=== PATIENT | female | born 1970 | race African-American/Black ===

== ENCOUNTER 2023-05-16 14:05 | Emergency (ER) | payer OTHER ==
[~2023-05-16] VITALS: Ht 167.6 cm; Wt 68.0 kg
[2023-05-16 14:16] VITALS: O2SAT 98
[2023-05-16 14:42] LABS: BASOPHILS % 0.6 % (0.0-2.0); EOSINOPHILS % 2.4 % (0.0-5.0); HEMATOCRIT. 36.3 % (36.0-48.0); HEMOGLOBIN. 12.3 g/dL (12.0-16.0); LYMPHOCYTES % 20.4 % (20.0-50.0); MEAN CORPUSCULAR HEMOGLOBIN 27.6 pg (28.0-32.0); MEAN CORPUSCULAR HGB CONC 33.8 g/dL (31.0-37.0); MEAN CORPUSCULAR VOLUME 81.6 fL (81.0-99.0); MEAN PLATELET VOLUME 8.4 fl (7.4-10.4); MONOCYTES % 5.9 % (2.0-8.0); NEUTROPHILS % 70.7 % (40.0-76.0); PLATELET 370 x1000/uL (130-400); RED BLOOD CELL COUNT 4.45 mill/uL (4.2-5.4); RED CELL DISTRIBUTION WIDTH 20.6 % (11.6-14.6)
[2023-05-16 14:53] LABS: HCG SCREEN NEGATIVE
[2023-05-16 14:56] LABS: ALANINE AMINOTRANSFERASE 11 IU/L (10-49); ALBUMIN 5.1 g/dL (3.2-4.8); ASPARTATE AMINOTRANSFERASE 24 IU/L (<34); BILIRUBIN TOTAL 0.5 mg/dL (0.1-1.0); CALCIUM 9.5 mg/dL (8.7-10.4); CARBON DIOXIDE 24 mEq/L (21-32); CHLORIDE 106 mEq/L (98-107); CREATININE 0.9 mg/dL (0.6-1.0); GLUCOSE 92 mg/dL (70-105); POTASSIUM 3.6 mEq/L (3.5-5.1); PROTEIN TOTAL 8.4 g/dL (6.0-8.3); SODIUM 137 mEq/L (136-145); UREA NITROGEN BLOOD 10 mg/dL (9-23)
[2023-05-16] MEDS: DIPHENHYDRAMINE 50MG/ML VIAL IV NR (16:07)
[2023-05-16] MEDS: METHYLPREDNISOLONE SOD SUCC 125MG/2ML (ACT-O-VIAL) IV NR (16:07)
[2023-05-16] MEDS: FAMOTIDINE 20MG/2ML VIAL IV NR (16:52)
[2023-05-16] MEDS ORDERED: DIPH25TA62 MT (18:48)
[2023-05-16] MEDS ORDERED: EPIN0.3P3 IM (18:48)
[2023-05-16 19:00] VITALS: BP 132/71; PULSE 75; RESP 15; TEMP 98.6
== END 2023-05-16 19:23 | disposition home or self-care (01) ==
LOC: ER 15:02
DX: T78.3XXA Angioneurotic edema, initial encounter (principal); X58.XXXA Exposure to other specified factors, initial encounter; Y93.89 Activity, other specified; Y92.89 Other specified places as the place of occurrence of the external cause; Y99.8 Other external cause status
CPT/HCPCS: 99284; 96374; 96375; 80053; 84703; 85025; 36415; J1200; J3490; J2930